=== PATIENT | female | born 1950 ===

== ENCOUNTER 2025-10-20 08:44 | Day surgery (SDC) | payer MEDICARE, OTHER ==
[~2025-10-20] VITALS: Ht 165.1 cm; Wt 58.0 kg
[~2025-10-20 08:44] MED LIST: Balanced Salt Epinephrine Irrigation Solution 500 mL IR SCH; Moxifloxacin HCL 0.5 MG/0.1 ML 0.4MLSYR RIGHTEYE SCH; Ondansetron 4 MG SoluTab MM PRN; PHENYLEPHRINE\\TROPICAMIDE\\TETRACAINE OPHTHALMIC DILATING SOLN RIGHTEYE PRN; Povidone-Iodine 450 DROP/30 ML Solution ONE; Povidone-Iodine 450 DROP/30 ML Solution RIGHTEYE SCH; Tetracaine HCl/Pf 0.5% Opth Soln 4 ml ONE; Triamcinolone Inj Susp 40 MG / ML 1ML Vial INJ SCH; Triamcinolone Inj Susp 40 MG / ML 1ML Vial ONE
[2025-10-20] MEDS ORDERED: ROPINIROLE HC0.2510 PO (08:56)
[2025-10-20] MEDS ORDERED: FOSAMAX70 MG PO (08:56)
[2025-10-20] MEDS ORDERED: FISH OIL 1,0001 EA10 PO (08:57)
--- NOTE | 2025-10-20 09:34 | NUR ---
10/20/25 0934 Corina Chase 57 HR 92% O2 106/64 BP 16 RR
[2025-10-20] MEDS ORDERED: Tetracaine HCl 0.5% Opth Soln 15 ml RIGHTEYE ONE (09:36)
[2025-10-20 09:54] VITALS: BP 99/82
== END 2025-10-20 10:12 | disposition home or self-care (01) ==
LOC: ORSCSDS 08:44
PROVIDERS: Ophthalmology
PROC: 08RJ3JZ Replacement of Right Lens with Synthetic Substitute, Percutaneous Approach (ICD-10-PCS; principal; 2025-10-20 10:00)
DX: H25.811 Combined forms of age-related cataract, right eye (principal); G25.81 Restless legs syndrome; Z79.899 Other long term (current) drug therapy
CPT/HCPCS: A9270; J3301; V2632

== ENCOUNTER 2025-10-27 08:35 | Day surgery (SDC) | payer MEDICARE, OTHER ==
[~2025-10-27] VITALS: Ht 165.1 cm; Wt 59.6 kg
[~2025-10-27 08:35] MED LIST changes: +FISH OIL 1,0001 EA10 PO; +FOSAMAX70 MG PO; +Moxifloxacin HCL 0.5 MG/0.1 ML 0.4MLSYR LEFTEYE SCH; -Moxifloxacin HCL 0.5 MG/0.1 ML 0.4MLSYR RIGHTEYE SCH; +PHENYLEPHRINE\\TROPICAMIDE\\TETRACAINE OPHTHALMIC DILATING SOLN LEFTEYE PRN; -PHENYLEPHRINE\\TROPICAMIDE\\TETRACAINE OPHTHALMIC DILATING SOLN RIGHTEYE PRN; +Povidone-Iodine 450 DROP/30 ML Solution LEFTEYE SCH; -Povidone-Iodine 450 DROP/30 ML Solution RIGHTEYE SCH; +ROPINIROLE HC0.2510 PO
[2025-10-27] MEDS ORDERED: Tetracaine HCl 0.5% Opth Soln 15 ml LEFTEYE ONE (09:56)
--- NOTE | 2025-10-27 09:56 | NUR ---
10/27/25 0956 Corina Chase 56 HR 91% O2 106/67 BP 16 RR
[2025-10-27 10:11] VITALS: BP 101/75
== END 2025-10-27 10:25 | disposition home or self-care (01) ==
LOC: ORSCSDS 08:35
PROVIDERS: Ophthalmology
PROC: 08RK3JZ Replacement of Left Lens with Synthetic Substitute, Percutaneous Approach (ICD-10-PCS; principal; 2025-10-27 10:30)
DX: H25.812 Combined forms of age-related cataract, left eye (principal); H52.202 Unspecified astigmatism, left eye; Z96.1 Presence of intraocular lens; G25.81 Restless legs syndrome; Z79.899 Other long term (current) drug therapy
CPT/HCPCS: A9270; J3301; V2632